=== PATIENT | female | born 1985 | race Hispanic/Latino ===

== ENCOUNTER 2018-11-06 21:57 | Emergency (ER) | payer OTHER ==
[2018-11-06 22:05] VITALS: BP 135/76; PULSE 85; RESP 17; TEMP 98.7; O2SAT 98
--- NOTE | 2018-11-06 22:33 | ED PDOC ---
Lower Extremity Pain/Injury Time Seen by Provider: 11/06/18 22:11 Chief Complaint (Nursing): Lower Extremity Problem/Injury Chief Complaint (Provider): Right leg swelling History Per: Patient History/Exam Limitations: no limitations Onset/Duration Of Symptoms: Hrs Current Symptoms Are (Timing): Still Present Additional Complaint(s): 33 year old female, who is 35 weeks and , presents to the ED complaining of right leg swelling since this evening. Patient denies abdominal pain, chest pain, or shortness of breath. She states she has had no complications during the . Patient has been taking vitamins. Of note, patient states she has been working long hours at work and therefore, has been sitting a lot. Patient denies any recent travel. 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 Past Medical History Reviewed: Historical Data, Nursing Documentation, Vital Signs Vital Signs: Last Vital Signs Temp 98.7 F 11/06/18 22:04 Pulse 85 11/06/18 22:04 Resp 17 11/06/18 22:04 BP 135/76 11/06/18 22:04 Pulse Ox 98 11/06/18 22:04 - Medical History PMH: No Chronic Diseases - Surgical History Surgical History: No Surg Hx - Family History Family History: States: Other Other Family History: Asthma (father) - Allergies Allergies/Adverse Reactions: Allergies Allergy/AdvReac Type Severity Reaction Status Date / Time No Known Allergies Allergy Verified 11/06/18 22:03 Wells Criteria for PE - Wells Criteria for Pulmonary Embolism Clinical Signs and Symptoms of DVT: Yes P.E is #1 Diagnosis, or Equally Likely: No Heart Rate >100: No Immobilization at least 3 days;Surgery previous 4 weeks: No Previous, objectively diagnosed PE or DVT: No Hemoptysis: No Malignancy w/treatment within 6 months, or palliative: No Total Score: 3 Review of Systems ROS Statement: Except As Marked, All Systems Reviewed And Found Negative Cardiovascular: Negative for: Chest Pain Respiratory: Negative for: Shortness of Breath Gastrointestinal: Negative for: Vomiting, Abdominal Pain Musculoskeletal: Positive for: Other (Right leg swelling) Physical Exam - Reviewed Nursing Documentation Reviewed: Yes Vital Signs Reviewed: Yes - Physical Exam Appears: Positive for: Non-toxic, No Acute Distress Head Exam: Positive for: ATRAUMATIC, NORMOCEPHALIC Skin: Positive for: Normal Color, Warm, Dry Eye Exam: Positive for: Normal appearance ENT: Positive for: Normal ENT Inspection Neck: Positive for: Normal, Painless ROM Cardiovascular/Chest: Positive for: Regular Rate, Rhythm Respiratory: Positive for: Normal Breath Sounds. Negative for: Wheezing, Respiratory Distress Pulses-Dorsalis Pedis (L): 2+ Pulses-Dorsalis Pedis (R): 2+ Gastrointestinal/Abdominal: Positive for: Normal Exam, Soft, Other (Gravid). Negative for: Tenderness Extremity: Positive for: Normal ROM, Swelling (Both legs but right greater than left). Negative for: Calf Tenderness, Other (ecchymosis) Neurologic/Psych: Positive for: Alert, Oriented. Negative for: Motor/Sensory Deficits - ECG O2 Sat by Pulse Oximetry: 98 (RA) Pulse Ox Interpretation: Normal Medical Decision Making Medical Decision Making: Initial Impression: Right leg swelling Differential includes DVT and dependent edema. Initial Plan: --Lower Extremity US 23:15 US FINDINGS: DEEP VEINS: The common femoral, superficial femoral, and popliteal veins are echolucent and compressible. There is normal color Doppler flow throughout. The visualized calf veins appear patent. SUPERFICIAL VEINS: The visualized greater saphenous vein is patent. SOFT TISSUES: No popliteal fossa cyst or other abnormalities. IMPRESSION: No deep venous thrombosis evident on right lower extremity examination. 23:35 Patient is aware of results and will be discharged at this time. She requires no further treatment at this time. Return precautions provided. Scribe Attestation: Documented by Darian Gomez acting as a scribe for Harika Vo MD. Provider Scribe Attestation: All medical record entries made by the Scribe were at my direction and personally dictated by me. I have reviewed the chart and agree that the record accurately reflects my personal performance of the history, physical exam, medical decision making, and the department course for this patient. I have also personally directed, reviewed, and agree with the discharge instructions and disposition. Disposition - Clinical Impression Clinical Impression: Leg swelling in - Patient ED Disposition Is Patient to be Admitted: No Doctor Will See Patient In The: Office Counseled Patient/Family Regarding: Studies Performed, Diagnosis, Need For Followup - Disposition Referrals: Court Eddy MD [Staff Provider] - Disposition: Routine/Home Disposition Time: 23:35 Condition: GOOD Additional Instructions: SHON SEWELL, thank you for letting us take care of you today. Your provider was Harika Vo MD and you were treated for RT LEG SWELLING 35 WKS PREG. The emergency medical care you received today was directed at your acute symptoms. If you were prescribed any medication, please fill it and take as directed. It may take several days for your symptoms to resolve. Return to the Emergency Department if your symptoms worsen, do not improve, or if you have any other problems. Please contact your doctor or call one of the physicians/clinics you have been referred to that are listed on the Patient Visit Information form that is included in your discharge packet. Bring any paperwork you were given at discharge with you along with any medications you are taking to your follow up visit. Our treatment cannot replace ongoing medical care by a primary care provider outside of the emergency department. Thank you for allowing the [email or web address] team to be part of your care today. If you had an X-Ray or CT scan: A Radiologist will review the ED reading if any change in treatment is needed we will contact you. If you had a blood, urine, or wound culture: It will take several days for the results, if any change in treatment is needed we will contact you. If you had an STI test: It will take 48 hours for the results. Please call after 1 week if you have not heard back. Instructions: Dependent Edema (DC)
--- NOTE | 2018-11-07 11:09 | US ---
Date of service: 11/06/2018 PROCEDURE: Right lower extremity venous duplex Doppler. HISTORY: right lower leg swelling COMPARISON: None available. TECHNIQUE: Common femoral, superficial femoral, popliteal and posterior tibial veins were evaluated. Flow was assessed with color Doppler, compressibility, assessment of phasic flow and augmentation response. FINDINGS: COMMON FEMORAL VEIN: Unremarkable. SUPERFICIAL FEMORAL VEIN: Unremarkable. POPLITEAL VEIN: Unremarkable. POSTERIOR TIBIAL VEIN: Unremarkable. OTHER FINDINGS: None. IMPRESSION: No evidence of deep venous thrombosis in the right lower extremity. Concordant findings (preliminary report) provided by CORNELIA BURGOS.
== END 2018-11-06 23:50 | disposition home or self-care (01) ==
LOC: H.ER 21:57
DX: O12.02 Gestational edema, second trimester (principal)

== ENCOUNTER 2018-12-08 19:03 | Inpatient (IN) | payer OTHER ==
[2018-12-08 19:40] VITALS: BMI 32.5
[2018-12-08] MEDS ORDERED: Lactated Ringer's 1,000 ML IV SCH (19:45)
--- NOTE | 2018-12-08 19:51 | OBADHP ---
Datetime: 12/08/2018 19:46 Admit Comment, IP Provider: Patient is a @ 39.6 wks, presents in active labor, roderick q 3- 5 mins, some scant bleeding. Patient is positive for GBS in , otherwise no other antepartum issues. No medical, no surgical issues, no allergies, only taking vitamins VE=/-1 FHR = 140 mod melo, no accels, no decels TOCO = ctxning q 3-5 mins A/P 1. Patient admitted in labor. Start IVF, CBC, Type and screen 2. Patient wants only nitrous for pain 3. GBS +, PCN prophylaxis 4. CEFM and TOCO Pelvic Type - PN: Adequate Extremities - PN: Normal Abdomen - PN: Normal Back - PN: Normal Breast - PN: Normal Lungs - PN: Normal Heart - PN: Normal Thyroid - PN: Normal Neurologic - PN: Normal HEENT - PN: Normal General - PN: Normal FHR - Baseline A Provider: 140 Membranes, Provider: Intact Contraction Comments Provider: Q 3-5 mins Vital Signs Provider: Reviewed; Within Normal Limits IP Chief Complaint: Uterine contractions NICHD Variability Prov Fetus A: Moderate 6-25bpm NICHD Decel Fetus A IP Provider: None Dilatation, Provider: 8 Effacement, Provider: 90 Station, Provider: -1 Genitourinary Exam: Normal DTRs - PN: Normal EGA AdmitDate IP: 39.5 IP Adm Impression: Term, intrauterine IP Admit Plan: Admit to unit
[2018-12-08] MEDS ORDERED: Oxytocin 30 UNIT 30 UNITS/500 ML BAG IV ONE ×3 (19:57→22:16)
[2018-12-08] MEDS ORDERED: Penicillin G 5 Million Unit Vial IVPB ONE (20:09)
[2018-12-08 20:37] LABS: BASO % 0.2 % (0.0-2.0); LYMPH # 0.7 K/uL (1.0-4.3); LYMPH % 4.7 % (20.0-40.0); MEAN CELL VOLUME 92.4 fl (81.0-99.0); MEAN CORPUSCULAR HEMOGLOBIN 31.5 pg (27.0-31.0); MEAN PLATELET VOLUME 10.4 fl (7.2-11.7); MONO # 0.2 K/uL (0.0-0.8); MONO % 1.6 % (0.0-10.0); NEUT # 13.4 K/uL (1.8-7.0); NEUT % 93.5 % (50.0-75.0); PLATELET COUNT 279 K/uL (130-400); RBC 4.12 Mil/uL (3.80-5.20); WHITE BLOOD COUNT 14.3 K/uL (4.8-10.8)
[2018-12-08] MEDS ORDERED: Lidocaine 2% PF (10 ml) Amp ONE (22:09)
[2018-12-08 22:21] LABS: BANDS 4 % (0-2); EOSINOPHIL 1 % (0-7); LYMPHOCYTE 7 % (20-50); MONOCYTE 3 % (0-10); NEUTROPHIL 85 % (42-75); PLATELET ESTIMATE NORMAL (NORMAL); TOTAL CELLS COUNTED 100
[2018-12-08] MEDS ORDERED: Oxycodone/Acetaminophen 5/325 mg Tab PO PRN ×2 (22:35)
[2018-12-08] MEDS ORDERED: Benzocaine/Menthol SPRAY TOP PRN (22:35)
--- NOTE | 2018-12-08 22:43 | OBDS ---
MATERNAL INFORMATION Provider Comments: of live female in [place] present followed by shoulders and rest of infan t, 6lbs 12 oz, 9/9, mouth and nose suctioned, cord clamped and cut, handed over to pediatricia n, cord blood obtained, placenta delivered spontaneouls, fundus firm, first degree laceration repaire d with 1% Lidocaine with epi and 2-0 vicryl rapide, EBL = 100mL, pt tolerated procedure well LABOR SUMMARY EDC: 12/10/2018 00:00 LABOR INFORMATION Onset of Labor: 12/08/2018 10:00 Group B Beta Strep: Positive
[2018-12-09 00:26] VITALS: O2SAT 99
[2018-12-09] MEDS ORDERED: Oxycodone/Acetaminophen 5/325 mg Tab PO PRN ×2 (00:28)
[2018-12-09] MEDS: Benzocaine/Menthol SPRAY TOP PRN (01:08)
[2018-12-09 07:09] LABS: BASO % 0.1 % (0.0-2.0); LYMPH % 7.4 % (20.0-40.0); MEAN PLATELET VOLUME 10.1 fl (7.2-11.7); MONO # 0.6 K/uL (0.0-0.8); MONO % 4.2 % (0.0-10.0); NEUT # 12.4 K/uL (1.8-7.0); NEUT % 88.3 % (50.0-75.0); RBC 3.07 Mil/uL (3.80-5.20)
[2018-12-09 07:12] LABS: HEMOGLOBIN 9.5 g/dL (12.0-16.0); MEAN CELL VOLUME 93.9 fl (81.0-99.0)
[2018-12-09] MEDS: Multivitamin With Minerals Tab PO SCH (08:20)
[2018-12-09] MEDS ORDERED: Multivitamin With Minerals Tab PO SCH (09:00)
--- NOTE | 2018-12-10 07:34 | OBPPN ---
Datetime: 12/09/2018 10:00 PP Pain Prov: Within normal limits PP Nausea Prov: Denies PP Flatus Prov: Yes PP BM Prov: No PP Breasts Prov: Normal PP Heart Prov: Normal PP Lungs Prov: Normal PP Abdomen/Uterus Prov: Normal PP Lochia Prov: Normal PP Vulva/Perineum Prov: Normal PP CVA Tenderness Prov: Normal PP Extremities Prov: Normal PP Impression Prov: Normal progression PP Plan Prov: Continue present management PP Progress Note Prov: She feels fine H/H 07/04 (asymptomatic) A: S/P day 1 PLAN cont care Vital Signs Provider PP: Reviewed; Within Normal Limits
--- NOTE | 2018-12-10 07:58 | OBPPN ---
Datetime: 12/10/2018 07:56 PP Pain Prov: Within normal limits PP Abdomen/Uterus Prov: Normal PP Lochia Prov: Normal PP Extremities Prov: Normal PP Progress Prov: Normal PP Impression Prov: Normal progression PP Plan Prov: Discharge PP Progress Note Prov: PPD 2 s/p , doing well, breast feeding Rx motrin and Slow Fe to be given Discharge home today Vital Signs Provider PP: Reviewed; Within Normal Limits
--- NOTE | 2018-12-10 08:01 | OBDCSUM ---
Datetime: 12/10/2018 07:58 Discharged to, Provider: Home Follow up at, Provider: Matt Disch Instr Activity: Normal activity; May Shower Disch Instr Diet: Regular Discharge Instructions, Provider: Routine instructions given Discharge Diagnosis, Provider: Term Delivered Discharge Time: 12/03/2018 07:58 Follow up in weeks, Provider: 5-6 weeks Contraception discussed, Prov: No Disch Activity Restrictions: No exercising; No lifting; No sexual activity; Nothing in vagina - Inte rcourse, tampons, douche
[2018-12-10] MEDS: Multivitamin With Minerals Tab PO SCH (08:49)
[2018-12-10] MEDS: Benzocaine/Menthol SPRAY TOP PRN (13:30)
[2018-12-10 18:15] VITALS: BP 115/76; PULSE 75; RESP 18; TEMP 98.1
== END 2018-12-10 13:45 | disposition home or self-care (01) | DRG 807 ==
LOC: H.EROB2 19:03 → H.L&D 19:40 → H.OB/GYN 12-09 00:24
PROVIDERS: ADMIT Obstetrics & Gynecology; ATTEND Obstetrics & Gynecology
PROC: 10E0XZZ Delivery of Products of Conception, External Approach (ICD-10-PCS; principal; 2018-12-08)
PROC: 0HQ9XZZ Repair Perineum Skin, External Approach (ICD-10-PCS; 2018-12-08)
PROC: 4A1HXCZ Monitoring of Products of Conception, Cardiac Rate, External Approach (ICD-10-PCS; 2018-12-08)
DX: O70.0 First degree perineal laceration during delivery (principal); Z37.0 Single live birth; O99.824 Streptococcus B carrier state complicating childbirth; Z3A.39 39 weeks gestation of pregnancy